=== PATIENT | female | born 1940 | race Caucasian/White ===

== ENCOUNTER 2016-06-20 11:52 | Emergency (ER) ==
[2016-06-20 12:01] VITALS: BP 137/87; TEMP 98.9; BMI 22.1
--- NOTE | 2016-06-20 15:00 | DI ---
EXAM: Chest two view, frontal and lateral views. HISTORY: Cough. COMPARISON: 06/12/2015. FINDINGS: The heart size is normal. There is no pulmonary vascular congestion. The lungs are hosea r. No pleural effusion or pneumothorax is seen. No acute osseous abnormality identified. IMPRESSION: No acute cardiopulmonary process.
--- NOTE | 2016-06-20 15:12 | CT ---
EXAM: CT Abdomen without contrast. CT Pelvis without contrast. HISTORY: Black stools. Abdominal pain. COMPARISON: None available. TECHNIQUE: Multiple axial images of the abdomen and pelvis were obtained without intravenous contra st. Images were reformatted in the coronal plane. FINDINGS: Please note that evaluation of the abdominal and pelvic structures is limited due to lack of intravenous contrast. Left lower lobe calcified granuloma noted. Degenerative changes present in the spine. A 1 cm hepatic cyst noted on axial image 13. The gallbladder, pancreas, spleen, adrenal glands, and kidneys demonstrate normal contour. No calcified renal stones or hydronephrosis detected. Small hiatal hernia noted. There is a duodenal diverticulum in the region of the ampulla. The massiel l is normal in course and caliber without evidence for obstruction or inflammatory process. Diverti cula present throughout the colon. Uterus is absent. Urinary bladder is unremarkable. Phleboliths seen in the pelvis. Atherosclerotic calcifications noted. No free fluid or free air identified. IMPRESSION: 1. No acute abnormality in the abdomen or pelvis. 2. Diverticulosis. 3. Small hiatal hernia.
[2016-06-20 15:15] LABS: BASOPHILS % (AUTO) 0.3 % (0.0-3.0); EOSINOPHILS % (AUTO) 0.3 % (0.0-7.0); HEMATOCRIT 40.1 % (37.0-47.0); HEMOGLOBIN 14.4 g/dl (12.0-16.0); IMMATURE GRANULOCYTE % (AUTO) 0.2 % (0.0-5.0); LYMPHOCYTES # (AUTO) 1.8 K/uL (0.60-3.4); LYMPHOCYTES % (AUTO) 30.2 (10.0-50.0); MEAN CORPUSCULAR HEMOGLOBIN 34.1 pg (27.0-31.0); MEAN CORPUSCULAR HGB CONC 35.9 (31.8-35.4); MONOCYTES # (AUTO) 0.4 K/uL (0.4-2.0); MONOCYTES % (AUTO) 6.6 (0-10); NEUTROPHILS # (AUTO) 3.8 K/ul (2.0-6.9); NEUTROPHILS % (AUTO) 62.4; PLATELET COUNT 249 10^3/uL (140-440); RED BLOOD COUNT 4.22 10^6/ul (4.20-5.40); WHITE BLOOD COUNT 6.03 K/ul (4.6-10.2)
[2016-06-20 15:31] LABS: PROTHROMBIN TIME 10.8 SEC (9.3-11.0)
[2016-06-20 15:33] LABS: OCCULT BLOOD INTERNAL QC 1 INTERNAL QC VALID; OCCULT BLOOD INTERNAL QC 2 INTERNAL QC VALID; OCCULT BLOOD INTERNAL QC 3 INTERNAL QC VALID; OCCULT BLOOD SAMPLE 1 POSITIVE (NEGATIVE); OCCULT BLOOD SAMPLE 2 NO SPECIMEN RECEIVED (NEGATIVE); OCCULT BLOOD SAMPLE 3 NO SPECIMEN RECEIVED (NEGATIVE)
[2016-06-20 15:44] LABS: ANION GAP 14.6; BLOOD UREA NITROGEN 5 mg/dL (7-18); CALCIUM 8.8 mg/dL (8.2-10.2); CARBON DIOXIDE 23 mmol/L (23-31); CHLORIDE 100 mmol/L (98-107); GLUCOSE 110 mg/dL (82-115); POTASSIUM 3.6 mmol/L (3.5-5.10); SODIUM 134 mmol/L (136-145)
[2016-06-20 15:45] LABS: ALANINE AMINOTRANSFERASE 14 U/L (12-78); ALBUMIN 4.1 g/dL (3.4-5.0); ALBUMIN/GLOBULIN RATIO 1.37; ALKALINE PHOSPHATASE 128 U/L (53-141); AMYLASE 32 U/L (25-115); ASPARTATE AMINO TRANSFERASE 22 U/L (15-37); CREATINE KINASE 28 U/L; LIPASE 22 U/L (8-78); TOTAL PROTEIN 7.1 g/dL (5.8-8.1)
--- NOTE | 2016-06-20 16:01 | ED.PDOC ---
General ED Provider: Dr. DORITA LIEBERMAN Chief Complaint: GI Bleed Stated Complaint: GI BLEEDING Time Seen by Physician: 12:00 (history of afib on elequist) Mode of Arrival: Walk-In Information Source: Patient Exam Limitations: No limitations Nursing and Triage Documentation Reviewed and Agree: Yes GI Complaint Exam - GI Bleed Complaint/Exam Patient Complains of: Reports: Vomiting blood, Black stools Onset/Duration: 1 WEEK Symptoms Are: Still present Episodes Lasting: Hours Severity: Reports: Black tarry stool Location of Pain: Reports: None Aggravating: Reports: None Review of Systems - Review Of Systems Constitutional: Reports: No symptoms Eyes: Reports: No symptoms Ears, Nose, Mouth, Throat: Reports: No symptoms Respiratory: Reports: No symptoms Cardiac: Reports: No symptoms GI: Reports: Other (black stools) : Reports: No symptoms Musculoskeletal: Reports: No symptoms Skin: Reports: No symptoms Neurological: Reports: No symptoms Endocrine: Reports: No symptoms Hematologic/Lymphatic: Reports: No symptoms All Other Systems: Reviewed and Negative Past Medical History - Past Medical History Endocrine: Reports: None Cardiovascular: Reports: Hypertension, A-Fib Respiratory: Reports: None Hematological: Reports: None Gastrointestinal: Reports: None Genitourinary: Reports: None Neuro/Psych: Reports: None Musculoskeletal: Reports: None Cancer: Reports: None Last Menstrual Period: hysterectomy - Surgical History General Surgical History: Reports: Hysterectomy, - Family History Family History: Reports: Heart (mother at 68 CHF), Other (father 40s- infection), Unknown - Social History Smoking Status: Never smoker Hx Substance Use: No Alcohol Screening: Occasionally Physical Exam - Physical Exam Appearance: Ill-appearing Ill-appearing: Mild Pain Distress: Mild Eyes: CITLALY, EOMI, Conjunctiva clear ENT: Ears normal, Nose normal, Oropharynx normal Respiratory: Airway patent, Breath sounds clear, Breath sounds equal, Respirations nonlabored Cardiovascular: RRR, Pulses normal, No rub, No murmur GI/: Soft, Nontender, No masses, Bowel sounds normal, No Organomegaly Musculoskeletal: Normal strength (black stool ), ROM intact, No edema, No calf tenderness Skin: Warm, Dry, Normal color Neurological: Sensation intact, Motor intact, Reflexes intact, Cranial nerves intact, Alert, Oriented Psychiatric: Affect appropriate, Mood appropriate Physician Notification - Case Discussed Physician Notified: dinorahtalist gabino zion Time of Notification: 16:31 Critical Care Note - Critical Care Note Total Time (mins): 0 Course - Course Hematology/Chemistry: 06/20/16 15:00 06/20/16 15:00 Orders, Labs, Meds: Lab Review 06/20/16 06/20/16 14:35 15:00 WBC 6.03 RBC 4.22 Hgb 14.4 Hct 40.1 MCV 95.0 MCH 34.1 H MCHC 35.9 H RDW Coeff of Shamir 12.4 Plt Count 249 Immature Gran % (Auto) 0.2 Neut % (Auto) 62.4 Lymph % (Auto) 30.2 [place] % (Auto) 6.6 Eos % (Auto) 0.3 Baso % (Auto) 0.3 Immature Gran # (Auto) 0.0 Neut # 3.8 Lymph # 1.8 [place] # 0.4 Eos # 0.0 Baso # 0.0 PT 10.8 INR 1.05 APTT 21.0 L Sodium 134 L Potassium 3.6 Chloride 100 Carbon Dioxide 23 Anion Gap 14.6 BUN 5 L Creatinine 0.40 L Estimated GFR (MDRD) 156.00 BUN/Creatinine Ratio 12.50 Glucose 110 Calcium 8.8 Total Bilirubin 0.80 AST 22 ALT 14 Alkaline Phosphatase 128 Total Creatine Kinase 28 Troponin I < 0.0100 Total Protein 7.1 Albumin 4.1 Globulin 3.0 Albumin/Globulin Ratio 1.37 Amylase 32 Lipase 22 Stl Occult Blood (IFOB) Positive Stool Occult Blood #2 No specimen received Stool Occult Blood #3 No specimen received Orders Category Date Time Status EKG-(ED ONLY) Stat CARDIO 06/20/16 14:35 Completed AMYLASE Stat LAB 06/20/16 15:00 Completed CBC W/ AUTO DIFF Stat LAB 06/20/16 15:00 Completed COMPREHENSIVE METABOLIC PANEL Stat LAB 06/20/16 15:00 Completed CREATINE KINASE Stat LAB 06/20/16 15:00 Completed LIPASE Stat LAB 06/20/16 15:00 Completed OCCULT BLOOD, STOOL Stat LAB 06/20/16 14:35 Completed PARTIAL THROMBOPLASTIN TIME Stat LAB 06/20/16 15:00 Completed PT WITH INR Stat LAB 06/20/16 15:00 Completed TROPONIN I Stat LAB 06/20/16 15:00 Completed Pantoprazole Sodium [Protonix IV] MEDS 06/20/16 16:15 Discontinued 40 mg IVP ONCE STA CHEST, 2 VIEWS PA & LAT Stat RADS 06/20/16 14:[address] ABDOMEN/PELVIS WO CONTRAST Stat RADS 06/20/16 14:36 Completed Medications Discontinued Medications Generic Name Dose Route Start Last Admin Trade Name [place] PRN Reason Stop Dose Admin Pantoprazole Sodium 40 mg 06/20/16 16:15 Protonix Iv IVP 06/20/16 16:16 ONCE STA Vital Signs: Temp Pulse Resp BP Pulse Ox 06/20/16 11:54 98.9 F 83 20 137/87 98 Departure - Departure Time of Disposition: 16:05 Disposition: TSF SHORT-TRM HOSP Discharge Problem: Gastrointestinal hemorrhage Instructions: Gastrointestinal Bleeding (ED) Condition: Good Pt referred to PMD for follow-up: No Additional Instructions: Please call your Family Physician as soon as possible to schedule a follow-up appointment. as i discussed with you , you have evidence of gastrointestinal bleeding you must have your MD EVALUATE YOUR MEDICATION AND UNDERGO UPPER,LOWER SCOPE WE DISCUSSED Allergies/Adverse Reactions: Allergies No Known Allergies Allergy (Verified 06/20/16 12:00) Home Medications: Ambulatory Orders Aspirin [Aspirin EC] 81 mg PO DAILY 10/27/13 Multivitamin [Multi-Vitamin Daily] 1 tab PO DAILY 10/27/13 Disposition Discussed With: Patient, Family
[2016-06-20] MEDS ORDERED: PROTONIX IV IVP STA (16:15)
== END 2016-06-20 17:02 | disposition short-term general hospital (02) ==
LOC: ED 11:52
DX: K92.2 Gastrointestinal hemorrhage, unspecified (principal)
CPT/HCPCS: 36415; 80053; 82150; 82272; 82550; 83690; 84484; 85025; 85610; 85730; 93005; 93010; 96374; 99285

== ENCOUNTER 2016-06-20 17:10 | Outpatient (CLI) ==
[2016-06-20 12:01] VITALS: BMI 22.1
== END 2016-06-20 17:11 ==
LOC: AMBL 17:10
PROVIDERS: ATTEND Internal Medicine
DX: R19.5 Other fecal abnormalities (principal); K92.2 Gastrointestinal hemorrhage, unspecified

== ENCOUNTER 2016-06-28 11:30 | Outpatient (CLI) ==
[2016-06-28] MEDS: VITAMIN B-12 ONE (11:45)
[2016-06-28] MEDS: VITAMIN B-12 IM STA (11:45)
[2016-06-28 11:46] VITALS: BP 118/54; TEMP 97.9
== END 2016-06-28 11:31 | disposition home or self-care (01) ==
LOC: OPMED 11:30
PROVIDERS: ATTEND Internal Medicine Hematology & Oncology
DX: E53.8 Deficiency of other specified B group vitamins (principal); D75.1 Secondary polycythemia
CPT/HCPCS: 96372

== ENCOUNTER 2016-07-05 13:06 | Outpatient (CLI) ==
[2016-07-05 13:46] LABS: BASOPHILS % (AUTO) 0.6 % (0.0-3.0); EOSINOPHILS # (AUTO) 0.1 K/ul (0.0-0.7); EOSINOPHILS % (AUTO) 1.4 % (0.0-7.0); HEMATOCRIT 38.7 % (37.0-47.0); HEMOGLOBIN 13.1 g/dl (12.0-16.0); IMMATURE GRANULOCYTE % (AUTO) 0.2 % (0.0-5.0); LYMPHOCYTES # (AUTO) 1.5 K/uL (0.60-3.4); LYMPHOCYTES % (AUTO) 28.9 (10.0-50.0); MEAN CORPUSCULAR HEMOGLOBIN 33.2 pg (27.0-31.0); MEAN CORPUSCULAR HGB CONC 33.9 (31.8-35.4); MONOCYTES # (AUTO) 0.5 K/uL (0.4-2.0); MONOCYTES % (AUTO) 10.4 (0-10); NEUTROPHILS # (AUTO) 2.9 K/ul (2.0-6.9); NEUTROPHILS % (AUTO) 58.5; PLATELET COUNT 327 10^3/uL (140-440); RED BLOOD COUNT 3.95 10^6/ul (4.20-5.40); WHITE BLOOD COUNT 5.02 K/ul (4.6-10.2)
[2016-07-05 14:43] LABS: ALBUMIN 3.4 g/dL (3.4-5.0); ALBUMIN/GLOBULIN RATIO 1.03; ANION GAP 14.5; BILIRUBIN,TOTAL 0.38 mg/dL (0.00-1.20); BUN/CREATININE RATIO 7.24; CREATININE 0.69 mg/dL (0.60-1.30); FERRITIN 54.63 ng/mL (4.63-204.00); FOLATE 13.7 ng/mL (3.1-20.5); POTASSIUM 3.5 mmol/L (3.5-5.10); TOTAL PROTEIN 6.7 g/dL (5.8-8.1)
== END 2016-07-05 13:07 | disposition home or self-care (01) ==
LOC: LAB 13:06
PROVIDERS: ATTEND Internal Medicine Hematology & Oncology
DX: D75.1 Secondary polycythemia (principal); D59.9 Acquired hemolytic anemia, unspecified; D63.8 Anemia in other chronic diseases classified elsewhere; Z79.899 Other long term (current) drug therapy
CPT/HCPCS: 36415; 80053; 82607; 82728; 82746; 83540; 83550; 85025

== ENCOUNTER 2016-07-17 10:54 | Outpatient (CLI) ==
[2016-07-17 11:39] LABS: ALBUMIN 3.4 g/dL (3.4-5.0); ALBUMIN/GLOBULIN RATIO 0.94; BILIRUBIN,TOTAL 0.59 mg/dL (0.00-1.20); BUN/CREATININE RATIO 5.26; CALCIUM 9.4 mg/dL (8.2-10.2); CHOL/HDL RATIO 2.3 (4.5-5.5); CREATININE 0.76 mg/dL (0.60-1.30)
== END 2016-07-17 10:55 ==
LOC: LAB 10:54
PROVIDERS: ATTEND Nurse Practitioner Family
DX: I10 Essential (primary) hypertension (principal)
CPT/HCPCS: 36415; 80053; 80061

== ENCOUNTER 2016-08-07 13:00 | Outpatient (CLI) | payer OTHER ==
[2016-08-07 13:17] LABS: HEMATOCRIT 39.1 % (37.0-47.0); HEMOGLOBIN 13.5 g/dl (12.0-16.0); MEAN CORPUSCULAR HEMOGLOBIN 32.1 pg (27.0-31.0); MEAN CORPUSCULAR HGB CONC 34.5 (31.8-35.4); MEAN CORPUSCULAR VOLUME 93.1 fl (81.0-99.0); RED BLOOD COUNT 4.2 10^6/ul (4.20-5.40); WHITE BLOOD COUNT 3.96 K/ul (4.6-10.2)
== END 2016-08-07 13:01 | disposition home or self-care (01) ==
LOC: LAB 13:00
PROVIDERS: ATTEND Internal Medicine Hematology & Oncology
DX: D75.1 Secondary polycythemia (principal)
CPT/HCPCS: 36415; 85027

== ENCOUNTER 2016-09-04 12:50 | Outpatient (CLI) ==
[2016-09-04 13:13] LABS: HEMATOCRIT 40.8 % (37.0-47.0); HEMOGLOBIN 14.1 g/dl (12.0-16.0); MEAN CORPUSCULAR HEMOGLOBIN 31.5 pg (27.0-31.0); MEAN CORPUSCULAR HGB CONC 34.6 (31.8-35.4); MEAN CORPUSCULAR VOLUME 91.3 fl (81.0-99.0); RED BLOOD COUNT 4.47 10^6/ul (4.20-5.40); WHITE BLOOD COUNT 4.53 K/ul (4.6-10.2)
== END 2016-09-04 12:51 | disposition home or self-care (01) ==
LOC: LAB 12:50
PROVIDERS: ATTEND Internal Medicine Hematology & Oncology
DX: D75.1 Secondary polycythemia (principal)
CPT/HCPCS: 36415; 85027

== ENCOUNTER 2016-10-02 12:53 | Outpatient (CLI) ==
[2016-10-02 13:29] LABS: HEMATOCRIT 42.7 % (37.0-47.0); MEAN CORPUSCULAR HEMOGLOBIN 31.4 pg (27.0-31.0); MEAN CORPUSCULAR HGB CONC 35.6 (31.8-35.4); MEAN CORPUSCULAR VOLUME 88.2 fl (81.0-99.0); RED BLOOD COUNT 4.84 10^6/ul (4.20-5.40); WHITE BLOOD COUNT 4.5 K/ul (4.6-10.2)
[2016-10-02 13:33] LABS: HEMOGLOBIN 15.2 g/dl (12.0-16.0)
== END 2016-10-02 12:54 | disposition home or self-care (01) ==
LOC: LAB 12:53
PROVIDERS: ATTEND Internal Medicine Hematology & Oncology
DX: D50.9 Iron deficiency anemia, unspecified (principal); D75.1 Secondary polycythemia
CPT/HCPCS: 36415; 85027; 99195

== ENCOUNTER 2016-10-07 12:28 | Outpatient (CLI) ==
[2016-10-07 13:01] LABS: BASOPHILS % (AUTO) 0.9 % (0.0-3.0); EOSINOPHILS # (AUTO) 0.1 K/ul (0.0-0.7); EOSINOPHILS % (AUTO) 2.4 % (0.0-7.0); HEMATOCRIT 45.3 % (37.0-47.0); HEMOGLOBIN 16.1 g/dl (12.0-16.0); IMMATURE GRANULOCYTE % (AUTO) 0.2 % (0.0-5.0); LYMPHOCYTES % (AUTO) 22.4 (10.0-50.0); MEAN CORPUSCULAR HEMOGLOBIN 31.5 pg (27.0-31.0); MEAN CORPUSCULAR HGB CONC 35.5 (31.8-35.4); MEAN CORPUSCULAR VOLUME 88.6 fl (81.0-99.0); MONOCYTES # (AUTO) 0.6 K/uL (0.4-2.0); NEUTROPHILS # (AUTO) 2.9 K/ul (2.0-6.9); NEUTROPHILS % (AUTO) 62.1; PLATELET COUNT 231 10^3/uL (140-440); RED BLOOD COUNT 5.11 10^6/ul (4.20-5.40)
[2016-10-07 14:34] LABS: ALBUMIN 3.2 g/dL (3.4-5.0); ALBUMIN/GLOBULIN RATIO 0.86; BILIRUBIN,TOTAL 0.5 mg/dL (0.00-1.20); BUN/CREATININE RATIO 5.79; CREATININE 0.69 mg/dL (0.60-1.30); FERRITIN 51.77 ng/mL (4.63-204.00); FOLATE 14.1 ng/mL (3.1-20.5); TOTAL PROTEIN 6.9 g/dL (5.8-8.1)
== END 2016-10-07 12:29 | disposition home or self-care (01) ==
LOC: LAB 12:28
PROVIDERS: ATTEND Internal Medicine Hematology & Oncology
DX: D50.9 Iron deficiency anemia, unspecified (principal); D75.1 Secondary polycythemia
CPT/HCPCS: 36415; 80053; 82607; 82728; 82746; 83540; 83550; 85025

== ENCOUNTER 2016-11-06 12:42 | Outpatient (CLI) ==
[2016-11-06 13:00] LABS: HEMATOCRIT 39.6 % (37.0-47.0); MEAN CORPUSCULAR HEMOGLOBIN 32.3 pg (27.0-31.0); MEAN CORPUSCULAR HGB CONC 35.4 (31.8-35.4); MEAN CORPUSCULAR VOLUME 91.2 fl (81.0-99.0); RED BLOOD COUNT 4.34 10^6/ul (4.20-5.40); WHITE BLOOD COUNT 4.7 K/ul (4.6-10.2)
== END 2016-11-06 12:43 | disposition home or self-care (01) ==
LOC: LAB 12:42
PROVIDERS: ATTEND Internal Medicine Hematology & Oncology
DX: D75.1 Secondary polycythemia (principal)
CPT/HCPCS: 36415; 85027

== ENCOUNTER 2016-12-10 12:51 | Outpatient (CLI) ==
[2016-12-10 13:15] LABS: HEMATOCRIT 41.5 % (37.0-47.0); HEMOGLOBIN 14.5 g/dl (12.0-16.0); MEAN CORPUSCULAR HEMOGLOBIN 32.7 pg (27.0-31.0); MEAN CORPUSCULAR HGB CONC 34.9 (31.8-35.4); MEAN CORPUSCULAR VOLUME 93.5 fl (81.0-99.0); RED BLOOD COUNT 4.44 10^6/ul (4.20-5.40); WHITE BLOOD COUNT 5.29 K/ul (4.6-10.2)
== END 2016-12-10 12:52 | disposition home or self-care (01) ==
LOC: LAB 12:51
PROVIDERS: ATTEND Internal Medicine Hematology & Oncology
DX: D75.1 Secondary polycythemia (principal)
CPT/HCPCS: 36415; 85027

== ENCOUNTER 2016-12-27 11:36 | Outpatient (CLI) ==
[2016-12-27 12:23] LABS: BASOPHILS % (AUTO) 0.6 % (0.0-3.0); EOSINOPHILS # (AUTO) 0.1 K/ul (0.0-0.7); HEMATOCRIT 38.8 % (37.0-47.0); HEMOGLOBIN 13.9 g/dl (12.0-16.0); IMMATURE GRANULOCYTE % (AUTO) 0.6 % (0.0-5.0); LYMPHOCYTES # (AUTO) 1.2 K/uL (0.60-3.4); LYMPHOCYTES % (AUTO) 25.1 (10.0-50.0); MEAN CORPUSCULAR HEMOGLOBIN 32.9 pg (27.0-31.0); MEAN CORPUSCULAR HGB CONC 35.8 (31.8-35.4); MEAN CORPUSCULAR VOLUME 91.7 fl (81.0-99.0); MONOCYTES # (AUTO) 0.5 K/uL (0.4-2.0); MONOCYTES % (AUTO) 9.6 (0-10); NEUTROPHILS % (AUTO) 63.1; PLATELET COUNT 228 10^3/uL (140-440); RED BLOOD COUNT 4.23 10^6/ul (4.20-5.40); WHITE BLOOD COUNT 4.78 K/ul (4.6-10.2)
[2016-12-27 13:42] LABS: ALBUMIN 3.3 g/dL (3.4-5.0); BILIRUBIN,TOTAL 0.51 mg/dL (0.00-1.20); BUN/CREATININE RATIO 6.15; CALCIUM 8.9 mg/dL (8.2-10.2); CREATININE 0.65 mg/dL (0.60-1.30); FERRITIN 94.35 ng/mL (4.63-204.00); TOTAL PROTEIN 6.6 g/dL (5.8-8.1)
[2016-12-28 13:20] LABS: FOLATE 11.2 ng/mL (3.1-20.5)
== END 2016-12-27 11:37 | disposition home or self-care (01) ==
LOC: LAB 11:36
PROVIDERS: ATTEND Internal Medicine Hematology & Oncology
DX: D75.1 Secondary polycythemia (principal); D53.9 Nutritional anemia, unspecified
CPT/HCPCS: 36415; 80053; 82607; 82728; 82746; 83540; 83550; 85025

== ENCOUNTER 2016-12-31 12:41 | Outpatient (CLI) ==
[2016-12-31 13:17] LABS: BASOPHILS % (AUTO) 0.4 % (0.0-3.0); EOSINOPHILS # (AUTO) 0.1 K/ul (0.0-0.7); EOSINOPHILS % (AUTO) 1.2 % (0.0-7.0); HEMATOCRIT 36.9 % (37.0-47.0); HEMOGLOBIN 13.1 g/dl (12.0-16.0); IMMATURE GRANULOCYTE % (AUTO) 0.2 % (0.0-5.0); LYMPHOCYTES # (AUTO) 1.5 K/uL (0.60-3.4); LYMPHOCYTES % (AUTO) 30.3 (10.0-50.0); MEAN CORPUSCULAR HEMOGLOBIN 32.9 pg (27.0-31.0); MEAN CORPUSCULAR HGB CONC 35.5 (31.8-35.4); MEAN CORPUSCULAR VOLUME 92.7 fl (81.0-99.0); MONOCYTES # (AUTO) 0.6 K/uL (0.4-2.0); MONOCYTES % (AUTO) 10.8 (0-10); NEUTROPHILS # (AUTO) 2.9 K/ul (2.0-6.9); NEUTROPHILS % (AUTO) 57.1; PLATELET COUNT 203 10^3/uL (140-440); RED BLOOD COUNT 3.98 10^6/ul (4.20-5.40); WHITE BLOOD COUNT 5.09 K/ul (4.6-10.2)
== END 2016-12-31 12:42 | disposition home or self-care (01) ==
LOC: LAB 12:41
PROVIDERS: ATTEND Internal Medicine Hematology & Oncology
DX: D75.1 Secondary polycythemia (principal)
CPT/HCPCS: 36415; 85025

== ENCOUNTER 2017-01-30 13:01 | Outpatient (CLI) ==
[2017-01-30 13:11] LABS: BASOPHILS % (AUTO) 0.4 % (0.0-3.0); EOSINOPHILS % (AUTO) 0.8 % (0.0-7.0); HEMATOCRIT 37.2 % (37.0-47.0); HEMOGLOBIN 13.4 g/dl (12.0-16.0); IMMATURE GRANULOCYTE % (AUTO) 0.2 % (0.0-5.0); LYMPHOCYTES # (AUTO) 1.6 K/uL (0.60-3.4); LYMPHOCYTES % (AUTO) 32.8 (10.0-50.0); MEAN CORPUSCULAR HEMOGLOBIN 33.2 pg (27.0-31.0); MEAN CORPUSCULAR VOLUME 92.1 fl (81.0-99.0); MONOCYTES # (AUTO) 0.6 K/uL (0.4-2.0); NEUTROPHILS # (AUTO) 2.6 K/ul (2.0-6.9); NEUTROPHILS % (AUTO) 53.8; PLATELET COUNT 213 10^3/uL (140-440); RED BLOOD COUNT 4.04 10^6/ul (4.20-5.40); WHITE BLOOD COUNT 4.91 K/ul (4.6-10.2)
== END 2017-01-30 13:02 | disposition home or self-care (01) ==
LOC: LAB 13:01
PROVIDERS: ATTEND Internal Medicine Hematology & Oncology
DX: D75.1 Secondary polycythemia (principal)
CPT/HCPCS: 36415; 85025

== ENCOUNTER 2017-02-05 13:42 | Emergency (ER) ==
[2017-02-05 13:48] VITALS: BP 159/93; TEMP 100; BMI 21.2
[2017-02-05 14:25] LABS: BILIRUBIN,URINE Negative (NEGATIVE); KETONES,URINE Negative (NEGATIVE); LEUKOCYTE ESTERASE ,URINE Negative (NEGATIVE); NITRITE,URINE Negative (NEGATIVE); PROTEIN,URINE Negative (NEGATIVE); URINE, BLOOD Trace-lysed (NEGATIVE)
[2017-02-05 14:28] LABS: ADD URINE MICROSCOPIC YES
--- NOTE | 2017-02-05 14:36 | ED.PDOC ---
General ED Provider: Dr. NUPUR STEARNS-ER Chief Complaint: Non-specific Complaint Stated Complaint: i wiped my bottom when i peed and i had blood on the tissue-- denies any urinary symptoms or abdominal pain Time Seen by Physician: 13:45 Mode of Arrival: Walk-In Information Source: Patient Exam Limitations: No limitations Primary Care Provider: V[facility] Nursing and Triage Documentation Reviewed and Agree: Yes Complaint Exam - Complaint/Exam Onset/Duration: one hour ago Symptoms Are: Resolved Initial Severity: Mild Current Severity: None Location of Pain: Reports: None Aggravating: Reports: None Alleviating: Reports: None Associated Signs and Symptoms: Reports: Hematuria. Denies: Diaphoresis, Back pain, Fever, Dysuria, Rectal pain, Appetite change, Nausea, Vomiting, Decreased urine output, Increased urine frequency, Increased thirst, Decreased activity, Lethargy, Abdominal Pain, Bubble bath use, Vaginal bleeding, Vaginal discharge, Genital swelling, Genital blisters, Retained foreign body RH Status: Unknown Related Surgical History: Reports: None Abdominal Findings: Present: None Differential Diagnoses: UTI, Other Review of Systems - Review Of Systems Constitutional: Reports: No symptoms Eyes: Reports: No symptoms Ears, Nose, Mouth, Throat: Reports: No symptoms Respiratory: Reports: No symptoms Cardiac: Reports: No symptoms GI: Reports: No symptoms : Reports: No symptoms Musculoskeletal: Reports: No symptoms Skin: Reports: No symptoms Neurological: Reports: No symptoms Endocrine: Reports: No symptoms Hematologic/Lymphatic: Reports: No symptoms All Other Systems: Reviewed and Negative Past Medical History - Past Medical History Previously Healthy: Yes Endocrine: Reports: None Cardiovascular: Reports: Hypertension, A-Fib Respiratory: Reports: None Hematological: Reports: None Gastrointestinal: Reports: None Genitourinary: Reports: None Neuro/Psych: Reports: None Musculoskeletal: Reports: None Cancer: Reports: None Last Menstrual Period: N/A - Surgical History General Surgical History: Reports: Hysterectomy, - Family History Family History: Reports: Heart (mother at 68 CHF), Other (father 40s- infection), Unknown - Social History Smoking Status: Never smoker Hx Substance Use: No Alcohol Screening: Occasionally Lives: With family - Immunizations Tetanus Shot up to Date: Yes Physical Exam - Physical Exam Appearance: Well-appearing, No pain distress, Well-nourished Eyes: CITLALY, EOMI, Conjunctiva clear ENT: Ears normal, Nose normal, Oropharynx normal Neck: Supple Respiratory: Airway patent, Breath sounds clear, Breath sounds equal, Respirations nonlabored Cardiovascular: RRR, Pulses normal, No rub, No murmur GI/: Soft, Nontender, No masses, Bowel sounds normal, No Organomegaly Musculoskeletal: Normal strength, ROM intact, No edema, No calf tenderness Skin: Warm Neurological: Sensation intact, Motor intact, Reflexes intact, Cranial nerves intact, Alert, Oriented Psychiatric: Affect appropriate, Mood appropriate Critical Care Note - Critical Care Note Total Time (mins): 0 Course - Course Orders, Labs, Meds: Lab Review 02/05/17 14:10 Urine Color Yellow Urine Clarity Clear Urine pH 6.0 Ur Specific [place] 1.010 Urine Protein Negative Urine Glucose (UA) Negative Urine Ketones Negative Urine Blood Trace-lysed Urine Nitrite Negative Urine Bilirubin Negative Urine Urobilinogen 0.2 Ur Leukocyte Esterase Negative Urine Microscopic RBC 0-2 Urine Microscopic WBC 0-2 Ur Squamous Epith Cells 0-2 Orders Category Date Time Status UA [URINALYSIS C & S IF INDICATED] Stat LAB 02/05/17 14:10 Completed Vital Signs: Temp Pulse Resp BP Pulse Ox 02/05/17 13:42 100 F H 82 20 159/93 H 98 Departure - Departure Time of Disposition: 14:37 Disposition: HOME SELF-CARE Discharge Problem: Rectal bleeding Instructions: Rectal Bleeding (ED) Condition: Good Pt referred to PMD for follow-up: Yes Additional Instructions: make appt to go to your pcp for complete vagnal and rectal exam Allergies/Adverse Reactions: Allergies No Known Allergies Allergy (Verified 02/05/17 13:50) Home Medications: Ambulatory Orders Aspirin [Aspirin EC] 81 mg PO DAILY 10/27/13 Multivitamin [Multi-Vitamin Daily] 1 tab PO DAILY 10/27/13 Pantoprazole Sodium 40 mg PO d 10/16/16 Disposition Discussed With: Patient, Family
== END 2017-02-05 14:45 | disposition home or self-care (01) ==
LOC: ED 13:42
DX: K62.5 Hemorrhage of anus and rectum (principal)
CPT/HCPCS: 81001; 99283

== ENCOUNTER 2017-02-27 12:43 | Outpatient (CLI) ==
[2017-02-27 12:58] LABS: HEMATOCRIT 40.2 % (37.0-47.0); HEMOGLOBIN 14.5 g/dl (12.0-16.0); MEAN CORPUSCULAR HEMOGLOBIN 33.8 pg (27.0-31.0); MEAN CORPUSCULAR HGB CONC 36.1 (31.8-35.4); MEAN CORPUSCULAR VOLUME 93.7 fl (81.0-99.0); PLATELET COUNT 209 10^3/uL (140-440); RED BLOOD COUNT 4.29 10^6/ul (4.20-5.40); WHITE BLOOD COUNT 5.88 K/ul (4.6-10.2)
[2017-03-01 13:00] LABS: BASOPHILS % (AUTO) 0.7 % (0.0-3.0); EOSINOPHILS % (AUTO) 0.5 % (0.0-7.0); IMMATURE GRANULOCYTE % (AUTO) 0.2 % (0.0-5.0); LYMPHOCYTES # (AUTO) 1.3 K/uL (0.60-3.4); LYMPHOCYTES % (AUTO) 21.1 (10.0-50.0); MONOCYTES # (AUTO) 0.6 K/uL (0.4-2.0); MONOCYTES % (AUTO) 10.6 (0-10); NEUTROPHILS % (AUTO) 66.9
== END 2017-02-27 12:44 | disposition home or self-care (01) ==
LOC: LAB 12:43
PROVIDERS: ATTEND Internal Medicine Hematology & Oncology
DX: D75.1 Secondary polycythemia (principal)
CPT/HCPCS: 36415; 85025; 85027

== ENCOUNTER 2017-02-28 02:22 | Emergency (ER) | payer OTHER ==
[2017-02-28 02:23] VITALS: BMI 21.2
[2017-02-28 02:35] VITALS: BP 125/81; TEMP 96.9
--- NOTE | 2017-02-28 03:46 | CT ---
EXAM: CT head without contrast. HISTORY: Fall. PROCEDURE: Contiguous axial CT images of the head without contrast with coronal and sagittal reforma ts. FINDINGS: There is diffuse cerebral atrophy. The ventricles and basal cisterns are normal in size an d configuration. No evidence of mass or midline shift. No intracranial hemorrhage or evidence of la rge vessel infarct. No extra-axial fluid collection. There are minimal chronic small vessel ischemi c changes in the white matter. The paranasal sinuses and mastoid air cells are well-aerated. No sku ll fracture. There is left periorbital soft tissue swelling. Impression: No intracranial hemorrhage or skull fracture. Left periorbital soft tissue swelling. Chronic small vessel ischemic changes. Diffuse cerebral atrophy.
--- NOTE | 2017-02-28 03:51 | CT ---
EXAM: CT of the cervical spine without contrast. HISTORY: Fall. PROCEDURE: Contiguous axial CT images of the cervical spine without contrast with coronal and sagitt al reformats. FINDINGS: There is normal alignment of the cervical vertebral bodies and facets. The vertebral body heights are maintained. There is multilevel disc space narrowing. There is vacuum disc phenomenon a t C5-6 and C6-7. There are posterior osteophytes at multiple levels of the cervical spine. There is multilevel facet arthropathy. The C1-2 relationship is maintained. No prevertebral soft tissue abn ormality. Impression: No evidence of fracture. Normal alignment of the cervical spine with degenerative changes as described.
--- NOTE | 2017-02-28 03:53 | CT ---
EXAM: CT of the face and orbits without contrast. HISTORY: Fall. PROCEDURE: Contiguous axial CT images of the face and orbits without contrast with coronal and sagit judi reformats. FINDINGS: The bony structures are intact without evidence of fracture. The temporomandibular joint s are maintained. The orbits are normal in appearance. The globes are intact and symmetric. There i s minimal mucosal thickening in the paranasal sinuses. There is left periorbital soft tissue swellin g. Impression: No evidence of fracture. Left periorbital soft tissue swelling. Paranasal sinusitis.
--- NOTE | 2017-02-28 04:04 | ED.PDOC ---
General ED Provider: Dr. NUPUR STEARNS-ER Chief Complaint: Head Injury Stated Complaint: i slipped and fell in the bathroom Time Seen by Physician: 02:30 Mode of Arrival: Walk-In Information Source: Patient, Family Exam Limitations: No limitations [facility] and Triage Documentation Reviewed and Agree: Yes Trauma/Injury Complaint Exam - Head Injury Complaint/Exam Location of Pain: Reports: Left, Face Mechanism of Injury: Reports: Trauma Onset/Duration: approx one hour Symptoms Are: Still present Initial Severity: Mild Current Severity: None Character: Reports: Sharp Aggravating: Reports: None Alleviating: Reports: None Associated Signs and Symptoms: Denies: Confusion, Memory loss, Seizure, Epistaxis, Dental malocclusion, Neck pain, Nausea, Vomiting Loss of Consciousness: None Related History: Reports: Similar episode SDH Risk Factors: Present: Elderly, Recent trauma Cervical Spine Injury Risk Factors: Present: None Head Injury Findings: Present: Normal findings Glascow Coma Scale (see protocol): 15 Focal Weakness: Present: None Focal Sensory Loss: Present: None Gait: Normal Gag Reflex Present: Yes Finger to Nose: Normal Rhomberg Test Positive: No Babinski Sign: Negative Right Heel to Toe Normal: Yes Differential Diagnoses: Sprain, Strain, Trauma Review of Systems - Review Of Systems Constitutional: Reports: No symptoms Eyes: Reports: No symptoms Ears, Nose, Mouth, Throat: Reports: No symptoms Respiratory: Reports: No symptoms Cardiac: Reports: No symptoms GI: Reports: No symptoms : Reports: No symptoms Musculoskeletal: Reports: No symptoms Skin: Reports: No symptoms Neurological: Reports: No symptoms Endocrine: Reports: No symptoms Hematologic/Lymphatic: Reports: No symptoms All Other Systems: Reviewed and Negative Past Medical History - Past Medical History Previously Healthy: Yes Endocrine: Reports: None Cardiovascular: Reports: Hypertension, A-Fib Respiratory: Reports: None Hematological: Reports: None Gastrointestinal: Reports: None Genitourinary: Reports: None Neuro/Psych: Reports: None Musculoskeletal: Reports: None Cancer: Reports: None Last Menstrual Period: PT HAS HAD A HYSTERECTOMY - Surgical History General Surgical History: Reports: Hysterectomy, - Family History Family History: Reports: Heart (mother at 68 CHF), Other (father 40s- infection), Unknown - Social History Smoking Status: Never smoker Hx Substance Use: No Alcohol Screening: Occasionally Lives: With family - Immunizations Tetanus Shot up to Date: (UNKNOWN) Physical Exam - Physical Exam Appearance: Well-appearing, No pain distress, Well-nourished Eyes: CITLALY, EOMI, Conjunctiva clear ENT: Ears normal, Nose normal, Oropharynx normal Neck: Supple Respiratory: Airway patent, Breath sounds clear, Breath sounds equal, Respirations nonlabored Cardiovascular: RRR, Pulses normal, No rub, No murmur GI/: Soft Musculoskeletal: Normal strength Skin: Warm, Dry (small ecchymosis next to left eye) Neurological: Sensation intact Psychiatric: Affect appropriate, Mood appropriate Interpretation - Radiology Interpretation Radiology Interpretation By: ED Physician Radiology Results: Negative Exam Interpreted: CT Scan Critical Care Note - Critical Care Note Total Time (mins): 0 Course - Course Orders, Labs, Meds: Orders Category Date Time Status CT CERVICAL SPINE W/O CONTRAST Stat RADS 02/28/17 02:[address] HEAD W/O CONTRAST Stat RADS 02/28/17 02:[address] MAXILLOFACIAL W/O CONTRAST Stat RADS 02/28/17 02:55 Completed Vital Signs: Temp Pulse Resp BP Pulse Ox 02/28/17 02:23 96.9 F L 75 20 125/81 98 Departure - Departure Time of Disposition: 04:04 Disposition: HOME SELF-CARE Discharge Problem: Facial contusion Qualifiers: Encounter type: initial encounter Qualified Code(s): S00.83XA - Contusion of other part of head, initial encounter Instructions: Black Eye (ED), Facial Contusion (ED) Condition: Good Pt referred to PMD for follow-up: Yes Additional Instructions: return prn Allergies/Adverse Reactions: Allergies No Known Allergies Allergy (Verified 02/28/17 02:32) Home Medications: Ambulatory Orders Multivitamin [Multi-Vitamin Daily] 1 tab PO DAILY 10/27/13 Pantoprazole Sodium 40 mg PO BID 10/16/16 Disposition Discussed With: Patient, Family
== END 2017-02-28 04:11 | disposition home or self-care (01) ==
LOC: ED 02:22
DX: S00.83XA Contusion of other part of head, initial encounter (principal); W01.0XXA Fall on same level from slipping, tripping and stumbling without subsequent striking against object, initial encounter
CPT/HCPCS: 99283

== ENCOUNTER 2017-03-27 12:43 | Outpatient (CLI) | payer OTHER ==
[2017-03-27 13:07] LABS: BASOPHILS % (AUTO) 0.7 % (0.0-3.0); EOSINOPHILS % (AUTO) 0.5 % (0.0-7.0); HEMATOCRIT 41.8 % (37.0-47.0); HEMOGLOBIN 15.4 g/dl (12.0-16.0); IMMATURE GRANULOCYTE % (AUTO) 0.2 % (0.0-5.0); LYMPHOCYTES # (AUTO) 1.2 K/uL (0.60-3.4); LYMPHOCYTES % (AUTO) 28.7 (10.0-50.0); MEAN CORPUSCULAR HEMOGLOBIN 34.8 pg (27.0-31.0); MEAN CORPUSCULAR HGB CONC 36.8 (31.8-35.4); MEAN CORPUSCULAR VOLUME 94.4 fl (81.0-99.0); MONOCYTES # (AUTO) 0.5 K/uL (0.4-2.0); MONOCYTES % (AUTO) 12.5 (0-10); NEUTROPHILS # (AUTO) 2.3 K/ul (2.0-6.9); NEUTROPHILS % (AUTO) 57.4; PLATELET COUNT 196 10^3/uL (140-440); RED BLOOD COUNT 4.43 10^6/ul (4.20-5.40); WHITE BLOOD COUNT 4.07 K/ul (4.6-10.2)
== END 2017-03-27 12:44 | disposition home or self-care (01) ==
LOC: LAB 12:43
PROVIDERS: ATTEND Internal Medicine Hematology & Oncology
DX: D75.1 Secondary polycythemia (principal)
CPT/HCPCS: 36415; 85025; 99195

== ENCOUNTER 2017-04-16 11:33 | Outpatient (CLI) | payer OTHER ==
[2017-04-16 11:57] LABS: BASOPHILS % (AUTO) 0.6 % (0.0-3.0); EOSINOPHILS % (AUTO) 0.3 % (0.0-7.0); HEMATOCRIT 41.5 % (37.0-47.0); HEMOGLOBIN 15.1 g/dl (12.0-16.0); LYMPHOCYTES # (AUTO) 1.1 K/uL (0.60-3.4); LYMPHOCYTES % (AUTO) 35.3 (10.0-50.0); MEAN CORPUSCULAR HGB CONC 36.4 (31.8-35.4); MEAN CORPUSCULAR VOLUME 93.5 fl (81.0-99.0); MONOCYTES # (AUTO) 0.4 K/uL (0.4-2.0); MONOCYTES % (AUTO) 13.1 (0-10); NEUTROPHILS # (AUTO) 1.6 K/ul (2.0-6.9); NEUTROPHILS % (AUTO) 50.7; PLATELET COUNT 186 10^3/uL (140-440); RED BLOOD COUNT 4.44 10^6/ul (4.20-5.40)
[2017-04-16 12:47] LABS: ALBUMIN 2.9 g/dL (3.4-5.0); ALBUMIN/GLOBULIN RATIO 0.83; ANION GAP 14.8; BILIRUBIN,TOTAL 0.67 mg/dL (0.00-1.20); BUN/CREATININE RATIO 3.22; CALCIUM 9.1 mg/dL (8.2-10.2); CREATININE 0.62 mg/dL (0.60-1.30); FERRITIN 113.83 ng/mL (4.63-204.00); FOLATE 14.4 ng/mL (3.1-20.5); POTASSIUM 3.8 mmol/L (3.5-5.10); TOTAL PROTEIN 6.4 g/dL (5.8-8.1)
== END 2017-04-16 11:34 | disposition home or self-care (01) ==
LOC: LAB 11:33
PROVIDERS: ATTEND Internal Medicine Hematology & Oncology
DX: D75.1 Secondary polycythemia (principal); D53.9 Nutritional anemia, unspecified
CPT/HCPCS: 36415; 80053; 82607; 82728; 82746; 83540; 83550; 85025

== ENCOUNTER 2017-05-01 12:52 | Outpatient (CLI) ==
[2017-05-01 13:16] LABS: HEMATOCRIT 40.8 % (37.0-47.0); HEMOGLOBIN 14.7 g/dl (12.0-16.0); MEAN CORPUSCULAR HEMOGLOBIN 33.7 pg (27.0-31.0); MEAN CORPUSCULAR VOLUME 93.6 fl (81.0-99.0); RED BLOOD COUNT 4.36 10^6/ul (4.20-5.40); WHITE BLOOD COUNT 6.45 K/ul (4.6-10.2)
== END 2017-05-01 12:53 | disposition home or self-care (01) ==
LOC: LAB 12:52
PROVIDERS: ATTEND Internal Medicine Hematology & Oncology
DX: D75.1 Secondary polycythemia (principal)
CPT/HCPCS: 36415; 85027

== ENCOUNTER 2017-05-29 12:19 | Outpatient (CLI) ==
[2017-05-29 12:36] LABS: HEMATOCRIT 36.1 % (37.0-47.0); HEMOGLOBIN 12.9 g/dl (12.0-16.0); MEAN CORPUSCULAR HEMOGLOBIN 33.3 pg (27.0-31.0); MEAN CORPUSCULAR HGB CONC 35.7 (31.8-35.4); MEAN CORPUSCULAR VOLUME 93.3 fl (81.0-99.0); RED BLOOD COUNT 3.87 10^6/ul (4.20-5.40); WHITE BLOOD COUNT 3.58 K/ul (4.6-10.2)
== END 2017-05-29 12:20 | disposition home or self-care (01) ==
LOC: LAB 12:19
PROVIDERS: ATTEND Internal Medicine Hematology & Oncology
DX: D75.1 Secondary polycythemia (principal)
CPT/HCPCS: 36415; 85027

== ENCOUNTER 2017-06-11 10:20 | Outpatient (CLI) ==
[2017-06-11 10:41] LABS: BASOPHILS % (AUTO) 0.6 % (0.0-3.0); EOSINOPHILS % (AUTO) 0.6 % (0.0-7.0); HEMATOCRIT 39.8 % (37.0-47.0); HEMOGLOBIN 14.1 g/dl (12.0-16.0); IMMATURE GRANULOCYTE % (AUTO) 0.2 % (0.0-5.0); LYMPHOCYTES # (AUTO) 1.3 K/uL (0.60-3.4); MEAN CORPUSCULAR HEMOGLOBIN 33.6 pg (27.0-31.0); MEAN CORPUSCULAR HGB CONC 35.4 (31.8-35.4); MEAN CORPUSCULAR VOLUME 94.8 fl (81.0-99.0); MONOCYTES # (AUTO) 0.5 K/uL (0.4-2.0); MONOCYTES % (AUTO) 9.6 (0-10); NEUTROPHILS # (AUTO) 3.1 K/ul (2.0-6.9); PLATELET COUNT 209 10^3/uL (140-440); WHITE BLOOD COUNT 4.92 K/ul (4.6-10.2)
[2017-06-11 11:33] LABS: ALBUMIN 2.8 g/dL (3.4-5.0); ALBUMIN/GLOBULIN RATIO 0.82; ANION GAP 10.8; BILIRUBIN,TOTAL 0.7 mg/dL (0.00-1.20); BUN/CREATININE RATIO 4.91; CALCIUM 8.8 mg/dL (8.2-10.2); CREATININE 0.61 mg/dL (0.60-1.30); FERRITIN 143.39 ng/mL (4.63-204.00); FOLATE 15.7 ng/mL (3.1-20.5); POTASSIUM 3.8 mmol/L (3.5-5.10); TOTAL PROTEIN 6.2 g/dL (5.8-8.1)
== END 2017-06-11 10:21 | disposition home or self-care (01) ==
LOC: LAB 10:20
PROVIDERS: ATTEND Internal Medicine Hematology & Oncology
DX: D75.1 Secondary polycythemia (principal); D53.9 Nutritional anemia, unspecified; E53.8 Deficiency of other specified B group vitamins; D75.89 Other specified diseases of blood and blood-forming organs; D72.819 Decreased white blood cell count, unspecified
CPT/HCPCS: 36415; 80053; 82607; 82728; 82746; 83540; 83550; 85025

== ENCOUNTER 2017-07-18 12:45 | Outpatient (CLI) | END 2017-07-18 12:46 | disposition home or self-care (01) | LOC: LAB 12:45 | PROVIDERS: ATTEND Internal Medicine Hematology & Oncology | DX: D75.1 Secondary polycythemia (principal) | CPT/HCPCS: 36415; 85025 ==

== ENCOUNTER 2017-08-04 15:12 | Outpatient (CLI) | END 2017-08-04 15:13 | disposition home or self-care (01) | LOC: LAB 15:12 | PROVIDERS: ATTEND Emergency Medicine | DX: E78.5 Hyperlipidemia, unspecified (principal); I10 Essential (primary) hypertension; I48.91 Unspecified atrial fibrillation | CPT/HCPCS: 36415; 80053; 80061; 84443 ==

== ENCOUNTER 2017-09-16 11:38 | Outpatient (CLI) | payer OTHER | END 2017-09-16 11:39 | disposition home or self-care (01) | LOC: LAB 11:38 | PROVIDERS: ATTEND Internal Medicine Hematology & Oncology | DX: D53.9 Nutritional anemia, unspecified (principal); E53.8 Deficiency of other specified B group vitamins; D75.89 Other specified diseases of blood and blood-forming organs; D72.819 Decreased white blood cell count, unspecified; D75.1 Secondary polycythemia | CPT/HCPCS: 36415; 80053; 82607; 82728; 82746; 83540; 83550; 85025 ==

== ENCOUNTER 2018-01-07 19:22 | Inpatient (IN) ==
--- NOTE | 2018-01-07 19:38 | ED.PDOC ---
General ED Provider: Dr. YVETTE MEJIA Chief Complaint: Fall Stated Complaint: Patient is a 77 year old female who is brought in by Ambulance after missing a step falling backwards. She hit her head and is bleeding also skinned her right elbow. She is on anticouagulation for Atrial fibrillation. Admits to use of ETOH tonight. Time Seen by Physician: 19:39 Mode of Arrival: Ambulance Information Source: Patient, EMT Exam Limitations: No limitations [facility] and Triage Documentation Reviewed and Agree: Yes Does patient meet sepsis criteria?: No System Inflammatory Response Syndrome: Not Applicable Sepsis Protocol: For patient's 13 years and over: Temp is 96.8 and below OR 101 and greater Pulse >90 BPM Resp >20/minute Acutely Altered Mental Status Are patient's symptoms suggestive of a new infection, such as: -Pneumonia -Skin, Soft Tissue -Endocarditis -UTI -Bone, Joint Infection -Implantable Device -Acute Abdominal Infection -Wound Infection -Meningitis -Blood Stream Catheter Infection -Unknown Trauma/Injury Complaint Exam - Head Injury Complaint/Exam Location of Pain: Reports: Scalp Mechanism of Injury: Reports: Trauma (fall backward on steps ) Onset/Duration: Just prior to arrival. Symptoms Are: Still present Initial Severity: Severe Current Severity: Moderate Character: Reports: Throbbing, Pressure Associated Signs and Symptoms: Reports: Neck pain. Denies: Confusion, Memory loss, Seizure, Epistaxis, Dental malocclusion, Nausea, Vomiting Loss of Consciousness: None SDH Risk Factors: Present: None Cervical Spine Injury Risk Factors: Present: Post-Midline CS tender, Distracting injuries. Absent: Evidence of intoxication, Altered LOC, Focal neuro deficit Head Injury Findings: Present: Neck pain Glascow Coma Scale (see protocol): 15 Focal Weakness: Present: None Focal Sensory Loss: Present: None Gait: Normal Gag Reflex Present: Yes Finger to Nose: Normal Rhomberg Test Positive: No Babinski Sign: Negative Right, Negative Left Heel to Toe Normal: Yes Nexus Low Risk Criteria: No post-midline CS tender, No evidence of intoxicat., No Altered LOC, No focal neuro deficit, No distracting injuries Head Picture: 1 - Abrassion 2 - old injury Differential Diagnoses: Cervical Fracture, Cervical Dislocation, Intracranial Bleed, Sprain, Strain - Trauma Complaint/Exam Location of Pain or Injury: Reports: RUE Mechanism of Injury: Reports: Fall Onset/Duration: just prior to arrival Symptoms Are: Still present Timing of Treatment: Immediate Initial Severity: Severe Current Severity: Moderate Character: Reports: Aching Aggravating: Reports: Movement Alleviating: Reports: Immobilization, Ice, Compression Associated Signs and Symptoms: Reports: Bleeding, Bruising, Swelling. Denies: LOC, Confusion, Memory loss, Lethargy, Vomiting, Extremity disuse, Painful respiration, Hoarseness, Dysphagia, Hemoptysis, Significant blood loss Related History: Reports: Alcohol abuse : No Glascow Coma Scale (see protocol): 15 Skin Findings: Present: Abrasion, Contusion Differential Diagnoses: Abrasion, Contusions, Sprain, Strain Review of Systems - Review Of Systems Constitutional: Reports: No symptoms Eyes: Reports: No symptoms Ears, Nose, Mouth, Throat: Reports: No symptoms Respiratory: Reports: No symptoms Cardiac: Reports: No symptoms GI: Reports: No symptoms : Reports: No symptoms Musculoskeletal: Reports: Joint pain (right elbow ), Neck pain Skin: Reports: Bruising Neurological: Reports: Headache Endocrine: Reports: No symptoms Hematologic/Lymphatic: Reports: No symptoms All Other Systems: Reviewed and Negative Past Medical History - Past Medical History Previously Healthy: Yes Endocrine: Reports: None Cardiovascular: Reports: Hypertension, A-Fib Respiratory: Reports: None Hematological: Reports: None Gastrointestinal: Reports: None Genitourinary: Reports: None Neuro/Psych: Reports: None Musculoskeletal: Reports: None Cancer: Reports: None Last Menstrual Period: none - Surgical History General Surgical History: Reports: Hysterectomy, - Family History Family History: Reports: Heart (mother at 68 CHF), Other (father 40s- infection), Unknown - Social History Smoking Status: Never smoker Hx Substance Use: No Alcohol Screening: Occasionally Physical Exam - Physical Exam Appearance: Ill-appearing, Thin Ill-appearing: Mild Pain Distress: Mild Eyes: CITLALY, EOMI, Conjunctiva clear ENT: Ears normal, Nose normal, Oropharynx normal Neck: Supple (but point tenderness to palpation at the base of the neck) Musculoskeletal: Limited ROM (Right elbow ) Skin: Warm, Dry Neurological: Sensation intact, Motor intact, Reflexes intact, Cranial nerves intact, Alert, Oriented Psychiatric: Anxious Interpretation - Radiology Interpretation Radiology Interpretation By: Radiologist Radiology Results: Negative Exam Interpreted: CT Scan (Head and C spine ) Radiology Interpretation By: Radiologist Radiology Results: Positive (Right displaced and comminuted fracture of olecranon, large joint efusion, soft tissue swelling likely due to hematoma) Exam Interpreted: Other (Right Elbow ) Procedures - Laceration/Wound Repair right elbow Wound Description: Flap Wound Length (cm): 3 cm Wound Explored: Clean Wound Irrigated: No Wound Prep: Hibiclens Wound Repaired With: Steri-strips (total of 5 ) Physician Notification - Case Discussed Physician Notified: Dr Ferrell Time of Notification: 22:30 (admit to welch ) Critical Care Note - Critical Care Note Total Time (mins): 0 Course - Course Hematology/Chemistry: 01/07/18 20:52 01/07/18 20:52 Orders, Labs, Meds: Lab Review 01/07/18 01/07/18 01/07/18 20:52 20:52 20:52 WBC 5.07 RBC 2.71 L Hgb 9.2 L Hct 25.8 L MCV 95.2 MCH 33.9 H MCHC 35.7 H RDW Coeff of Shamir 12.2 Plt Count 168 Immature Gran % (Auto) 0.4 Neut % (Auto) 61.2 Lymph % (Auto) 25.6 [place] % (Auto) 12.0 H Eos % (Auto) 0.4 Baso % (Auto) 0.4 Immature Gran # (Auto) 0.0 Neut # (Auto) 3.1 Lymph # (Auto) 1.3 [place] # (Auto) 0.6 Eos # (Auto) 0.0 Baso # (Auto) 0.0 PT 11.0 INR 1.10 APTT 30.0 Sodium 123 L Potassium 3.4 L Chloride 95 L Carbon Dioxide 18 L Anion Gap 13.4 BUN 2 L Creatinine 0.47 L Estimated GFR (MDRD) 129.00 BUN/Creatinine Ratio 4.25 Glucose 87 Calcium 8.0 L Total Bilirubin 1.0 AST 116 H ALT 56 Alkaline Phosphatase 149 H Total Protein 4.9 L Albumin 2.2 L Globulin 2.7 Albumin/Globulin Ratio 0.81 Plasma/Serum Alcohol 27.4 Orders Category Date Time Status ED IV/MEDIPORT/POWERPORT .ONCE EMERGENCY 01/07/18 22:00 Active OCL [ED SPLINT APPLICATION] .ONCE EMERGENCY 01/07/18 21:31 Active Orthostatic [ED ORTHOSTATIC VITAL SIGNS] .ONCE EMERGENCY 01/07/18 20:34 Active CBC W/ AUTO DIFF Stat LAB 01/07/18 20:52 Completed COMPREHENSIVE METABOLIC PANEL Stat LAB 01/07/18 20:52 Completed ETOH LEVEL [BLOOD ALCOHOL] Stat LAB 01/07/18 20:52 Completed PARTIAL THROMBOPLASTIN TIME Stat LAB 01/07/18 20:52 Completed PT WITH INR Stat LAB 01/07/18 20:52 Completed 0.9 % Sodium Chloride [Saline Flush] MEDS 01/07/18 22:00 Ordered 1 syr IVF PRN PRN Acetaminophen [Tylenol] MEDS 01/07/18 20:15 Discontinued 1,000 mg PO ONCE STA Cephalexin [Keflex] MEDS 01/07/18 21:15 Discontinued 500 mg PO ONCE STA Diphth,Pertuss(Acell),Tet Vac [Boostrix] MEDS 01/07/18 20:15 Discontinued 0.5 ml IM .ONCE ONE Sodium Chloride 0.9% [Sodium Chloride] 1,000 ml MEDS 01/07/18 22:[address] CERVICAL SPINE W/O CONTRAST Stat RADS 01/07/18 19:[address] HEAD W/O CONTRAST Stat RADS 01/07/18 19:37 Completed ELBOW, RIGHT 2 VIEWS Stat RADS 01/07/18 19:38 Completed Medications Generic Name Dose Route Start Last Admin Trade Name Freq PRN Reason Stop Dose Admin Apixaban 5 mg 01/08/18 09:00 Eliquis PO BID SHARON Cephalexin 500 mg 01/08/18 06:00 Keflex PO Q6HR SHARON Sodium Chloride 1,000 mls @ 50 mls/hr 01/07/18 23:00 01/07/18 23:02 Sodium Chloride IV 50 mls/hr .Q20H SHARON Administration Sodium Chloride 1,000 mls @ 50 mls/hr 01/07/18 23:30 01/08/18 00:11 Sodium Chloride IV 50 mls/hr .Q20H SHARON Administration Meperidine HCl 25 mg 01/08/18 00:04 Demerol 100 Mg/Ml Syringe IVP Q8HR PRN Pain Multivitamins 1 tab 01/08/18 09:00 Multivitamin Tablet PO DAILY SHARON Ondansetron HCl 4 mg 01/07/18 23:03 Zofran 4 Mg/2 Ml IVP Q6H PRN Nausea / Vomiting Pantoprazole Sodium 40 mg 01/08/18 09:00 Protonix PO BID SHARON Sodium Chloride 1 syr 01/07/18 22:00 01/07/18 22:58 Saline Flush IVF 1 syr PRN PRN Administration To flush IV Sotalol HCl 40 mg 01/08/18 09:00 Betapace PO BID SHARON Discontinued Medications Generic Name Dose Route Start Last Admin Trade Name Freq PRN Reason Stop Dose Admin Acetaminophen 1,000 mg 01/07/18 20:15 01/07/18 20:23 Tylenol PO 01/07/18 20:16 1,000 mg ONCE STA Administration Cephalexin 500 mg 01/07/18 21:15 01/07/18 21:24 Keflex PO 01/07/18 21:16 500 mg ONCE STA Administration Cephalexin 500 mg 01/08/18 00:00 Keflex PO Q6HR SHARON Diphtheria/Pertussis/Tetanus Vacc 0.5 ml 01/07/18 20:15 01/07/18 20:24 Boostrix IM 01/07/18 20:16 0.5 ml .ONCE ONE Administration Sodium Chloride 1,000 mls @ 1,000 mls/hr 01/07/18 22:00 01/07/18 22:58 Sodium Chloride IV 01/07/18 22:59 Not Given BOLUS STA Vital Signs: Temp Pulse Resp BP Pulse Ox 01/07/18 21:30 102 H 105/66 01/07/18 19:23 98.6 F 90 18 127/67 100 Departure - Departure Time of Disposition: 21:32 Disposition: HOME SELF-CARE Discharge Problem: Abrasion Elbow fracture, right Qualifiers: Encounter type: initial encounter Fracture type: closed Qualified Code(s): S42.401A - Unspecified fracture of lower end of right humerus, initial encounter for closed fracture Contusion Qualifiers: Encounter type: initial encounter Contusion area: head Contusion of head detail : scalp Qualified Code(s): S00.03XA - Contusion of scalp, initial encounter Condition: Stable Pt referred to PMD for follow-up: Yes IPMP verified?: No Allergies/Adverse Reactions: Allergies No Known Allergies Allergy (Verified 01/07/18 19:30) Home Medications: Ambulatory Orders Multivitamin [Multi-Vitamin Daily] 1 tab PO DAILY 10/27/13 Pantoprazole Sodium 40 mg PO BID 10/16/16 Cephalexin [Keflex] 500 mg PO Q8HR #30 capsule 01/07/18 Disposition Discussed With: Patient, Family
[2018-01-07] MEDS ORDERED: BOOSTRIX IM ONE (20:15)
[2018-01-07] MEDS ORDERED: TYLENOL PO STA (20:15)
--- NOTE | 2018-01-07 20:35 | DI ---
EXAM: Right elbow, two views, 01/07/2018 HISTORY: Fall COMPARISON: None. FINDINGS / IMPRESSION: Displaced and comminuted appearing fracture is present at the olecranon. The re is extension through the articular surface. Multiple displaced bony fragments. There is a large joint effusion. Severe superficial soft tissue swelling likely due to hematoma.
--- NOTE | 2018-01-07 20:35 | CT ---
EXAM: CT of the head without contrast History: Head trauma. Comparison: Head CT 02/28/2017 Technique: Multiplanar CT images through the head were obtained without the administration of IV con trast Findings: The visualized paranasal sinuses and mastoid air cells are clear in general. No acute ronaldo varial abnormalities. Small to moderate posterior scalp hematoma. Intracranially there is stable atrophy. No dominant mass or midline shift. No hydrocephalous. No a cute intracranial hemorrhage or abnormal extraaxial fluid collections. No change in the periventricu lar and subcortical white matter hypodensities. Impression: 1. No acute intracranial process. 2. Stable chronic age-related changes. 3. Posterior scalp hematoma.
--- NOTE | 2018-01-07 20:37 | CT ---
EXAM: CT cervical spine without intravenous contrast 01/07/2018. Sagittal and coronal reformatted i mages obtained HISTORY: Neck injury. Fall COMPARISON: 02/28/2017 FINDINGS: Normal anatomic alignment is maintained. Vertebral bodies appear intact without fracture. The facet joints align normally. The prevertebral soft tissues appear within normal limits There is no fracture or subluxation identified at any level. Multilevel chronic degenerative disc disease. Chronic facet arthropathy. IMPRESSION: No acute post traumatic osseous abnormality of the cervical spine.
[2018-01-07] MEDS ORDERED: KEFLEX PO STA (21:15)
[2018-01-07] MEDS ORDERED: SODIUM CHLORIDE 1,000 ML IV STA (22:00)
[2018-01-07] MEDS: SODIUM CHLORIDE 1,000 ML IV SCH (23:02)
[2018-01-07] MEDS ORDERED: ZOFRAN 4 MG/2 ML IVP PRN (23:03)
[2018-01-07] MEDS ORDERED: SODIUM CHLORIDE 1,000 ML IV SCH (23:30)
[2018-01-07 23:43] VITALS: BMI 18.6
[2018-01-08] MEDS ORDERED: KEFLEX PO SCH
[2018-01-08] MEDS ORDERED: DEMEROL 100 MG/ML SYRINGE IVP PRN (00:04)
[2018-01-08] MEDS: KEFLEX PO SCH ×4 (06:20→23:12)
[2018-01-08] MEDS: PROTONIX PO SCH ×2 (08:09→17:21)
[2018-01-08] MEDS: BETAPACE PO SCH ×2 (08:09→20:07)
[2018-01-08] MEDS: ELIQUIS PO SCH ×2 (08:10→20:07)
[2018-01-08] MEDS ORDERED: K-DUR PO STA (08:44)
[2018-01-08] MEDS ORDERED: SODIUM CHLORIDE IV STA (08:45)
[2018-01-08] MEDS ORDERED: POTASSIUM CHLORIDE IV STA (08:45)
[2018-01-08] MEDS ORDERED: MULTIVITAMIN TABLET PO SCH (09:00)
[2018-01-08] MEDS ORDERED: POTASSIUM CHLORIDE PREMIX RUN 100 ML IV STA (09:00)
[2018-01-08] MEDS ORDERED: CARDIZEM PO SCH (09:00)
[2018-01-08] MEDS ORDERED: POTASSIUM CHLORIDE PREMIX RUN 100 ML IV SCH (10:00)
--- NOTE | 2018-01-08 14:47 | RS.PTINEVL ---
Subjective - Patient information Date of Evaluation: 01/08/18 Date of Arrival on Unit: 01/07/18 Admitted From:: Home Diagnosis: fall, displaced comminuted fx of olecranon, ETOH abuse Usual Living Arrangement: Alone Home Environment: House Medical History: Hypertension, Cancer (uterine) Medical History Comments:: afib Surgical History: Hysterectomy, Medications: see chart Subjective Information/ Patient Comments:: pt agitated, states she is in [place] , states her arm is not broken. pt confused oriented to person only. pt states she did not fall. Chart reports pt missed step and fell backwards. - Level of function Prior to this admission, the patient could do the following:: Independent Selfcare, Independent ADL's, Independent Ambulation Current Level of Function: Partially Dependent Current Equipment Used at Home: N/A Interventions - Objective Patient Orientation: Person Current Interventions: IV's, Telemetry Observation: pt with splint to RUE, abrasion to nose, injury to back of head. Nursing reports change in mental status and have called MD and stat CT of head has been ordered. 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,) Left Upper Extremity Strength: Mild Weakness (grossly 4-/5) Right Lower Extremity Strength: Mild Weakness (hip flex 4-/5, knee flex/ext 4/5 , ankle DF/PF 4/5) Left Lower Extremity Strength: Mild Weakness (hip flex 4-/5, knee flex/ext 4/5, ankle DF/PF 4/5) Sensation - Sensation Right Upper Extremity Sensation: Intact/Normal Left Upper Extremity Sensation: Intact/Normal Right Lower Extremity Sensation: Intact/Normal Left Lower Extremity Sensation: Intact/Normal Balance - Sitting Balance and Reactions Static Sitting Balance: Fair Dynamic Sitting Balance: Fair Sitting Equilibrium Reactions: Delayed Left, Delayed Right Sitting Protective Reactions: Delayed Left, Delayed Right - Standing Balance and Reactions Static Standing Balance: Poor Dynamic Standing Balance: Poor Standing Equilibrium Reactions: Delayed Left, Delayed Right Standing Protective Reactions: Delayed Left, Delayed Right Functional Mobility - Bed Mobility Comments:: pt refused to get go to bed. - Transfers Sit to Stand: CGA Stand to Sit: CGA - Safety Awareness Safety Awareness: Poor ROHITH INDEX SCORE: n/a Ambulation - Ambulation Orthotic/Prosthetic Device: No Distance: 125ft Assistance needed with Ambulation: Min Assist Gait Deviations: Ataxic gait, Forward posture, Short stride Ambulation Comments: pt amb with flexed posture, decreased step length, with ataxic gait pattern Factors Affecting Ambulation: Decreased Balance, Weakness, Decreased Coordination, Decreased Safety, Cognitive Status, Limited Endurance Treatment time - Units charged ADL: 1 - Time with patient Length of Evaluation: 19 Total treatment time: 34 Patient Education - Education Patient Education: Home Exercise Program, Education of Plan of Care Teaching Recipient: Patient Teaching Methods: Discussion (discussion regarding POC as well as tried to reorient patient and educate on asking for help before getting out of chair) Assessment - Assessment Problem List:: Decreased level of function, Requires training/education, Decreased safety/Risk of falls, Weakness, Pain limits previous level of function , Cognitive status limits abilities Rehab Potential: Fair Further Therapy Indicated?: Yes Candidate for Swing Bed for Therapy Services?: pt may not be a candidate for swing bed due to inability to retain instructions. Evaluation Complexity: HISTORY: Medium (htn, fall, afib, hypokalemia, fx elbow) , EXAM OF BODY SYSTEMS: Medium (strength, ROM, balance, gait), CLINICAL PRESENTATION: Medium (evolving), CLINICAL DECISION MAKING: Medium Short Term Goals GOAL #1: pt demonstrate independence with bed mobility Goal to be met by: 01/10/18 GOAL #2: pt transfers sup to/from sit to/from stand CGA Goal to be met by: 01/10/18 GOAL #3: pt amb with AAD with CGA for 50 ft Goal to be met by: 01/10/18 Shopfitter Goals GOAL #1: Transfer sup to/from sit to/from stand independently/safely Goal to be met by: 01/13/18 GOAL #2: pt amb functional household distances with no LOB Goal to be met by: 01/13/18 GOAL #3: Improve strength BLE 4 to 4+/5 Goal to be met by: 01/13/18 Plan Plan of Care: Therapeutic EX, Therapeutic Activity Other:: gait training Frequency of Treatment: 1-2 X day, as tolerated Duration of Treatment: 5 days Anticipated Discharge Destination: Home Treatment Diagnosis (ICD 10 Codes): R26.0 ataxic gait. R26.81 balance impaired. M62.81 generalized weakness Has the Physician been added for Co-signature?: Yes
--- NOTE | 2018-01-08 15:01 | CT ---
EXAM: CT BRAIN HISTORY: Confusion TECHNIQUE: CT brain without intravenous contrast. 5-mm axial sections with Reformations. COMPARISON: 01/07/2018 FINDINGS: There is generalized atrophy. There is moderate periventricular and deep white matter low attenuation which although nonspecific is suggestive of chronic microvascular ischemic change. These findings a re stable. Brain otherwise is unremarkable without evidence of hemorrhage or large vessel distribution recent is chemic infarction. There is no suggestion of acute hydrocephalus or subdural fluid collection. No m ass or mass effect. Cranium is within normal limits. Mastoid processes are aerated. The visualized paranasal sinuses a re clear. IMPRESSION: Involutional changes. No acute intracranial process.
--- NOTE | 2018-01-08 17:14 | US ---
EXAM: Bilateral carotid artery Doppler History: Dizziness. Technique: Multiple sonographic images through the bilateral internal carotid arteries were obtained . Color duplex Doppler was used to interrogate vascular flow. Findings: The right ICA peak systolic velocity is within normal limits measuring 0.7 meters per second. The rig ht ICA/cca PSV ratio is normal at 1.0. The right vertebral artery is patent and demonstrates antegra de flow. Huitron scale images demonstrate mild plaque buildup within the right internal carotid artery. The left ICA peak systolic velocity is within normal limits measuring 0.7 meters per second. The lef t ICA/cca PSV ratio is normal at 1.6. The left vertebral artery is patent and demonstrates antegrade flow. Huitron scale images demonstrate mild plaque buildup within the left internal carotid artery Impression: No significant hemodynamic stenosis of the bilateral internal carotid arteries.
[2018-01-08] MEDS ORDERED: ZYPREXA IM STA (20:56)
[2018-01-09] MEDS ORDERED: HALDOL IM ONE (01:17)
[2018-01-09] MEDS: DEMEROL 25 MG/ML VIAL IVP PRN ×2 (04:28→19:59)
[2018-01-09] MEDS: KEFLEX PO SCH ×3 (05:36→17:23)
[2018-01-09] MEDS: PROTONIX PO SCH ×2 (05:36→17:23)
[2018-01-09] MEDS: SODIUM CHLORIDE 1,000 ML IV SCH (07:30)
[2018-01-09] MEDS ORDERED: HALDOL IM STA (08:39)
[2018-01-09] MEDS: LIBRIUM PO SCH ×2 (09:33→17:23)
[2018-01-09] MEDS: ELIQUIS PO SCH ×2 (09:34→20:03)
[2018-01-09] MEDS: BETAPACE PO SCH ×2 (09:36→20:06)
[2018-01-09] MEDS: FOLIC ACID 1 MG, INFUVITE ADULT 10 ML, THIAMINE 100 MG in SODIUM CHLORIDE 1,000 ML IV SCH (09:37)
--- NOTE | 2018-01-09 11:36 | HP ---
DATE OF SERVICE: 01/07/18 CHIEF COMPLAINT: Status post fall HISTORY OF PRESENT ILLNESS: This is a 77 year old female who lives at the home. She was walking on the staircase, felt dizzy and light headed fell back and hurt the back of the head. The patient is on the blood thinner from the atrial fibrillation and starting bleeding and came to the emergency room. She had a broken right elbow and laceration to the scalp. Hgb 9.2, sodium 123. At that time the patient being admitted to the hospital for the symptomatic hyponatremia. REVIEW OF SYSTEMS: CONSTITUTIONAL: No fever, no chills. Weakness and tiredness. Lightheadedness, dizziness. HEENT: Normal. ENDOCRINE: No weight gain; no weight loss. CVS: No chest pain. No PND, no orthopnea. No shortness of breath. No PND, no orthopnea. RESPIRATORY: No cough, no congestion. No hemoptysis. GI: No nausea, no vomiting. No abdominal pain. No melena. : No hematuria. No polyuria. MUSCULOSKELETAL: No joint swelling. Right elbow pain. PSYCHIATRIC: Not anxious. No depression. No suicidal thoughts. No homicidal thoughts. SKIN: Intact, no open lesions. PAST MEDICAL HISTORY: CAD Atrial fibrillation Hypertension GERD Peptic ulcer disease Hysterectomy Osteoarthritis Alcohol use PAST SURGICAL HISTORY: The patient did have uterine cancer and has status post hysterectomy PERSONAL HISTORY: The does smoke and does drink sometimes. FAMILY HISTORY: CHF Bladder cancer MEDICATIONS: Protonix Multivitamin Eliquis Sotalol ALLERGIES: No known allergies PHYSICAL EXAMINATION: V/S: Blood pressure 127/67, respiratory rate 18, heart rate 90, temperature 98.6 with saturation 100%. GENERAL: The patient is very thin built. HEENT: Atraumatic, normocephalic. No scleral icterus. Pallor positive. Mucosa dry. Scalp laceration 3cm. NECK: Supple. No JVD, no bruit. No lymphadenopathy. No thyromegaly. HEART: Irregular. S1, S2 normal. Systolic murmur. No cyanosis or clubbing. No ascites. LUNGS: Clear to auscultation. No rales or rhonchi. ABDOMEN: Soft, nontender. Bowel sounds are active. No CVA tenderness. No rigidity or guarding. EXTREMITIES: No pedal edema. No cyanosis or clubbing. Left elbow range of motion is decreased in the brace. MUSCULOSKELETAL: Normal joints, no swelling. NEUROLOGIC: The patient is awake, alert and oriented times three. SKIN: Intact; no open lesions. Some bruises to the left forearm. LYMPHATIC: No lymph nodes palpable. LABS: Sodium 123, potassium 3.4, chloride 95, bicarb 18, BUN 2, creatinine 0.47 and glucose 87. WBC 5.07, hgb 9.2, hct 24.8, plt count 168. Coagulation negative. Blood alcohol negative. ASSESSMENT: 1. Status post syncope 2. Status post fall with head injury 3. Hyponatremia, symptomatic 4. Right elbow fracture 5. Atrial fibrillation 6. History of GI bleed 7. Peptic ulcer disease PLAN: 1. Admit patient to the regular floor 2. CBC and CMP today and daily 3. IV fluids 4. Neuro checks 5. Continue home medications 6. Immobilization of the right forearm. TIME SPENT: MORE THAN 70 minutes MTDD
--- NOTE | 2018-01-09 11:51 | PN ---
DATE OF SERVICE: 01/08/18 SUBJECTIVE: The patient complains of some lightheadedness, no dizziness. Elbow has been hurting. REVIEW OF SYSTEMS: CONSTITUTIONAL: No fever, no chills. HEENT: Normal. ENDOCRINE: No weight gain, no weight loss. CVS: No angina symptoms. No CHF symptoms. No palpitations. No atypical chest pain for CAD. No shortness of breath. No PND, no orthopnea. RESPIRATORY: No cough, no hemoptysis. GI: No nausea, no vomiting. No abdominal pain. : No hematuria. No polyuria. MUSCULOSKELETAL: No joint swelling. PSYCHIATRIC: Not anxious. No depression. No suicidal thoughts. No homicidal thoughts. SKIN: Intact. No rash. PHYSICAL EXAMINATION: V/S: Blood pressure 109/65, respiratory rate 18, heart rate 82, temperature 98.6 with saturation 100%. HEENT: Normocephalic, atraumatic. Mucosa dry. Pallor positive. No icterus. Scalp wound is feeling better. NECK: Supple. No JVD, no carotid bruit. No lymphadenopathy. LUNGS: Clear to auscultation. No rales or rhonchi. HEART: Irregular. S1, S2 normal. No S3. No murmur, gallop or regurgitation. ABDOMEN: Soft, nontender. Bowel sounds active. No rigidity. No rebound or guarding. No CVA tenderness. EXTREMITIES: No cyanosis, clubbing or pedal edema. Range of motion in the right elbow is decreased. Swelling is present. MUSCULOSKELETAL: No joint swelling. NEUROLOGIC: Awake, alert. No focal deficit. LYMPHATIC: No lymph nodes palpable. SKIN: Intact. LABS: Sodium 130, potassium 2.9, chloride 103, bicarb 20, BUN 2, creatinine 0.43 and glucose 85. WBC 3.52, hgb 8.3, hct 23.3, plt count 162. ASSESSMENT: 1. Status post fall with laceration to the head. 2. Right elbow fracture 3. Anemia 4. Symptomatic hyponatremia 5. Atrial fibrillation PLAN: 1. Carotid ultrasound 2. CAT scan of the head in case of change in mental status 3. IV fluids TIME SPENT: More than 35 minutes MTDD
[2018-01-10] MEDS: KEFLEX PO SCH ×5 (01:35→23:49)
[2018-01-10] MEDS: LIBRIUM PO SCH ×3 (01:36→17:39)
[2018-01-10] MEDS: PROTONIX PO SCH ×2 (07:14→17:39)
[2018-01-10] MEDS: ELIQUIS PO SCH ×2 (09:05→20:58)
[2018-01-10] MEDS: BETAPACE PO SCH ×2 (09:05→20:58)
[2018-01-10] MEDS: FOLIC ACID 1 MG, INFUVITE ADULT 10 ML, THIAMINE 100 MG in SODIUM CHLORIDE 1,000 ML IV SCH ×2 (09:05→11:01)
[2018-01-10] MEDS ORDERED: K-DUR PO SCH (14:30)
[2018-01-10] MEDS ORDERED: K-DUR ONE (14:47)
[2018-01-10] MEDS ORDERED: SODIUM CHLORIDE IV STA ×2 (17:21→17:25)
[2018-01-10] MEDS ORDERED: POTASSIUM CHLORIDE IV STA ×2 (17:21→17:25)
[2018-01-10] MEDS ORDERED: POTASSIUM CHLORIDE 20 MEQ VIAL IV ONE (17:31)
[2018-01-10] MEDS: K-DUR PO SCH (17:38)
[2018-01-10] MEDS ORDERED: HALDOL PO STA (21:40)
[2018-01-11] MEDS: LIBRIUM PO SCH ×4 (00:30→21:58)
[2018-01-11] MEDS ORDERED: HALDOL IM STA (00:42)
[2018-01-11] MEDS: DEMEROL 25 MG/ML VIAL IVP PRN ×2 (03:16→13:59)
[2018-01-11] MEDS: KEFLEX PO SCH ×3 (05:56→17:01)
[2018-01-11] MEDS: PROTONIX PO SCH ×2 (05:56→17:01)
[2018-01-11] MEDS: ELIQUIS PO SCH ×2 (10:07→21:39)
[2018-01-11] MEDS: ZYPREXA PO SCH (10:07)
[2018-01-11] MEDS: BETAPACE PO SCH ×2 (10:08→21:38)
[2018-01-11] MEDS: K-DUR PO SCH ×2 (10:08→16:59)
[2018-01-11] MEDS: MAG-OX PO SCH (10:08)
[2018-01-11] MEDS: FOLIC ACID 1 MG, INFUVITE ADULT 10 ML, THIAMINE 100 MG in SODIUM CHLORIDE 1,000 ML IV SCH ×3 (10:08→17:02)
[2018-01-11] MEDS ORDERED: LIBRIUM ONE (16:11)
[2018-01-12] MEDS: KEFLEX PO SCH ×3 (01:46→14:11)
[2018-01-12] MEDS: DEMEROL 25 MG/ML VIAL IVP PRN (02:11)
[2018-01-12] MEDS ORDERED: FOLIC ACID ONE (04:34)
[2018-01-12] MEDS ORDERED: INFUVITE ADULT IV ONE (04:35)
[2018-01-12] MEDS ORDERED: THIAMINE ONE (04:35)
[2018-01-12] MEDS: FOLIC ACID 1 MG, INFUVITE ADULT 10 ML, THIAMINE 100 MG in SODIUM CHLORIDE 1,000 ML IV SCH (05:04)
[2018-01-12] MEDS: PROTONIX PO SCH (06:06)
[2018-01-12] MEDS ORDERED: LIBRIUM ONE ×2 (06:11→06:13)
[2018-01-12] MEDS: LIBRIUM PO SCH (06:13)
[2018-01-12] MEDS: BETAPACE PO SCH (10:06)
[2018-01-12] MEDS: ZYPREXA PO SCH (10:06)
[2018-01-12] MEDS: ELIQUIS PO SCH (10:06)
[2018-01-12] MEDS: MAG-OX PO SCH (10:10)
[2018-01-12] MEDS: K-DUR PO SCH (10:10)
--- NOTE | 2018-01-12 12:52 | PN ---
DATE OF SERVICE: 01/11/18 SUBJECTIVE: The patient was admitted status post fall with syncopal episode. The patient had complication with change in mental status and delirium. As of today, the patient already was given Librium 25 mg and Haldol was given 1 gm yesterday evening and Zyprexa 2.5. Right now the patient was able to sleep but per the nurses the patient is constantly up and down wanting to walk. Yesterday she did have a fall episode but did not hurt herself. She was found on her knees, did not complain of any pain. REVIEW OF SYSTEMS: CONSTITUTIONAL: No fever, no chills. HEENT: Normal. ENDOCRINE: No weight gain, no weight loss. CVS: No angina symptoms. No CHF symptoms. No palpitations. No atypical chest pain for CAD. No shortness of breath. No PND, no orthopnea. RESPIRATORY: No cough, no hemoptysis. GI: No nausea, no vomiting. No abdominal pain. : No hematuria. No polyuria. MUSCULOSKELETAL: No joint swelling. PSYCHIATRIC: Not anxious. No depression. No suicidal thoughts. No homicidal thoughts. SKIN: Intact. No rash. PHYSICAL EXAMINATION: V/S: BP 95/68, respiratory rate 16, heart rate 90, BP 97.8, saturation 98. HEENT: Normocephalic, atraumatic. Mucosa dry. Pallor positive. No icterus. NECK: Supple. No JVD, no carotid bruit. No lymphadenopathy. LUNGS: Decreased with basilar crackles. Clear to auscultation. No rales or rhonchi. HEART: S1, S2 normal. No S3. No murmur, gallop or regurgitation. ABDOMEN: Soft, nontender. Bowel sounds active. No rigidity. No rebound or guarding. No CVA tenderness. EXTREMITIES: Right upper extremity is in a cast. No cyanosis, clubbing or pedal edema. MUSCULOSKELETAL: No joint swelling. NEUROLOGIC: Responds to verbal stimuli and goes back to sleep. LYMPHATIC: No lymph nodes palpable. SKIN: Intact. LABS: White count 3.60, hemoglobin 8.6, hematocrit 25.7, platelet count 177. Sodium 140, potassium 3.8, chloride 113, bicarb 21, BUN 2, creatinine 0.43, glucose 877. ASSESSMENT: 1. CHANGE IN MENTAL STATUS 2. DEMENTIA WITH DELIRIUM TREMENS 3. DELIRIUM 4. HYPOKALEMIA WHICH IS BETTER 5. STATUS POST FALL WITH HEAD INJURY AND LACERATION 6. RIGHT ELBOW FRACTURE 7. ATRIAL FIBRILLATION ON ELIQUIS 8. ANEMIA PLAN: 1. Stool for occult blood test 2. Fall precaution 3. Increase Librium to 50 mg t.i.d. 4. Continue Zyprexa at 5 mg TIME SPENT: More than 35 minutes MTDD
[2018-01-12] MEDS ORDERED: LIBRIUM PO SCH (13:00)
--- NOTE | 2018-01-12 13:09 | DS ---
DATE OF SERVICE: 01/12/18 FINAL DIAGNOSIS: 1. Status post fall syncopal episode with head injury 2. Right elbow comminuted fracture 3. Change in mental status with psychosis 4. Hypokalemia which is being corrected 3.8 Potassium today 5. Atrial fibrillation on Eliquis 6. Hypertension 7. History of uterine cancer with hysterectomy 8. Osteoarthritis 9. Alcohol use DISCHARGE INSTRUCTIONS: [facility] right [facility] possible surgery. Continue current care of medications. MEDICATIONS AT DISCHARGE: Eliquis 5mg PO twice a day Librium 50mg Q 8 hours Magnesium 400mg PO daily Demerol PRN IV fluids with banana bag Zyprexa 500mg PO daily Zofran PRN Protonix PO twice a day Potassium 40mg PO twice a day Sotalol 40mg PO twice a day DIET INSTRUCTIONS: Regular ACTIVITY: Bed rest. DISEASE SPECIFIC EDUCATION: Fall risk prevention and elderly Alcohol use and dementia been discussed and verbalized understanding. HOSPITAL COURSE: Torie Smiley, 77 year old female who is well known to the [facility] from being followed there came to the emergency room on January 07 to the emergency room in the night time after sustaining the fall. The patient did say that the patient was drinking that day and sustained a fall, right elbow was swollen and laceration on the back of the head. CT head was negative. In review of syncopal episode questionable she says that she slipped and fall backward and she was drinking alcohol on that day per patient herself. At that time the patient was admitted to the hospital for evaluation of the syncopal episode and fall. Hgb was 9.2, potassium 3.4, sodium 123, BUN 2, creatinine 0.47, urine positive for the leukocyte esterase 2+ but did not grow any culture. Right elbow did showed the communicated fracture. CT of cervical spine was negative. CT head no acute intracranial bleeding. We were able to get the Carotid ultrasound. By next day in the evening her confusion has increased. She didn't know where she was and she was confused of the person, place and time. 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 She was telling us that patient has an alcohol problem and she drinks alcohol everyday so at that time the patient was put on the banana bag, Librium and her psychosis was in and out. One day she was able to recognize me and she knew that I was Dr. Ferrell and I have been following her but she didn't know where she was. With the Librium 25mg and the Zyprexa 2.5 she was still awake and was restless sometime. The Librium was increase to the 50mg PO Q 8 hours and did give the dose of the Haldol 1mg IM on zumba instructor today around 1:00. As of today's rounds the patient was sleepy, responds to the painful stimuli and goes back to sleep. Given her condition we thought it appropriate for the patient to be transferred to the psychiatric center. When we approach the wanted to right elbow to be fixed before she could be accepted so we called [facility] for the transfer. Dr. Nguyen was courteous enough with the hospitalist or someone can see the patient he will be consultation so we called hospitalist service, Dr. Mccann will be accepting the patient and will be transferred there at this time for the further evaluation. TIME SPENT: MORE THAN 65 MINUTES LESLEE
--- NOTE | 2018-01-12 13:30 | PN ---
DATE OF SERVICE: 01/10/18 SUBJECTIVE: The patient was admitted from the emergency room after sustaining the fall and the right elbow fracture. The patient is still having the confusion episode. We found that patient has been having alcohol problem and as of now the patient is not in the withdraw but she has change in mental status most likely from the dementia and confusion. CT scan two times is negative. REVIEW OF SYSTEMS: CONSTITUTIONAL: No fever, no chills. HEENT: Normal. ENDOCRINE: No weight gain, no weight loss. CVS: No angina symptoms. No CHF symptoms. No palpitations. No atypical chest pain for CAD. No shortness of breath. No PND, no orthopnea. RESPIRATORY: No cough, no hemoptysis. GI: No nausea, no vomiting. No abdominal pain. : No hematuria. No polyuria. MUSCULOSKELETAL: No joint swelling. PSYCHIATRIC: Not anxious. No depression. No suicidal thoughts. No homicidal thoughts. SKIN: Intact. No rash. PHYSICAL EXAMINATION: V/S: blood pressure 108/69, respiratory rate 22, heart rate 84, temperature 98.0 with saturation 98% HEENT: Normocephalic, atraumatic. Mucosa dry. Pallor positive. No icterus. NECK: Supple. No JVD, no carotid bruit. No lymphadenopathy. LUNGS: Decreased and Clear to auscultation. No rales or rhonchi. HEART: S1, S2 normal. No S3. No murmur, gallop or regurgitation. ABDOMEN: Soft, nontender. Bowel sounds active. No rigidity. No rebound or guarding. No CVA tenderness. EXTREMITIES: No cyanosis, clubbing or pedal edema. MUSCULOSKELETAL: No joint swelling. NEUROLOGIC: Awake, alert, not oriented. No focal deficit. LYMPHATIC: No lymph nodes palpable. SKIN: Intact. LABS: WBC 3.05, hgb 8.3, hct 24.0, plt count 150, sodium 138, potassium 3.1, chloride 110, bicarb 21, BUN 2, creatinine 0.46 and glucose 79 ASSESSMENT: 1. Syncope with status post fall 2. Head injury with laceration 3. Right elbow fracture 4. Change in mental status most likely dementia 5. Hypokalemia 6. Atrial fibrillation 7. Hypertension 8. Anemia PLAN: 1. Continue the Librium 2. Continue the banana bag 3. Replace the potassium TIME SPENT: More than 35 minutes MTDD
[2018-01-12 13:50] VITALS: BP 115/68; TEMP 97.8
--- NOTE | 2018-01-12 17:40 | PCM.HOSP ---
- Initial Hospital Care [id number] 70 Minutes Bedside ([id number]): 01/07 - Subsequent Care [id number] 35 Minutes per Day ([id number]): 01/08. 7/. 7/. 01/11 - Hospital Discharge [id number] More than 30 Minutes ([id number]): 01/12
== END 2018-01-12 15:15 | disposition home or self-care (01) | DRG 563 ==
LOC: ED 19:22 → MEDSURG A 22:29
PROVIDERS: ADMIT Emergency Medicine; ATTEND Emergency Medicine
DX: S42.401A Unspecified fracture of lower end of right humerus, initial encounter for closed fracture (principal); E87.1 Hypo-osmolality and hyponatremia; F05 Delirium due to known physiological condition; E87.6 Hypokalemia; R55 Syncope and collapse; R41.82 Altered mental status, unspecified; I48.91 Unspecified atrial fibrillation; I10 Essential (primary) hypertension; M19.90 Unspecified osteoarthritis, unspecified site; F03.90 Unspecified dementia, unspecified severity, without behavioral disturbance, psychotic disturbance, mood disturbance, and anxiety; W19.XXXA Unspecified fall, initial encounter; Z79.01 Long term (current) use of anticoagulants; Z72.89 Other problems related to lifestyle
CPT/HCPCS: 36415; 80053; 80307; 81001; 82607; 82728; 82746; 83540; 83550; 83735; 84132; 84466; 85025; 85045; 85610; 85730; 87086; 90471; 90715; 96360; 97802; 99284

== ENCOUNTER 2018-01-12 15:21 | Outpatient (CLI) | END 2018-01-12 15:41 | disposition short-term general hospital (02) | LOC: AMBL 15:21 | PROVIDERS: ATTEND Internal Medicine | DX: S42.401A Unspecified fracture of lower end of right humerus, initial encounter for closed fracture (principal); F03.90 Unspecified dementia, unspecified severity, without behavioral disturbance, psychotic disturbance, mood disturbance, and anxiety ==